=== PATIENT | female | born 1930 | race Caucasian/White ===

== ENCOUNTER → 2016-11-08 | Outpatient (CLI) | payer OTHER ==
[~2016-11-08] MED LIST: ACETAMINOPHEN PO; ASPIRIN PO; CARBIDOPA-LEVO1 EAC5 PO; DETROL LA PO; GLUCOSAMINE CHOND; MEVACOR PO; MOBIC PO; MULTIVITAMIN; NEXIUM PO; NORVASC PO; PATIENT'S PHARMACY; PLAVIX PO; PRINCIPEN500 M1 PO; PROCTOZONE-HC30 G2 PR; TOPROL XL PO; TOVIAZ8 MG PO; TYLOX 5/500 CAP1 CAP PO; VITAMIN D 4001 UDTAB PO; [UNRECOGNIZED DRUG - OTHER] PO
--- NOTE | ~2016-11-08 | MR17 ---
[facility] A Service of [facility] & [facility] RADIOLOGY TEXT RESULTS PATIENT: ANGIE MOSS LOCATION: [facility] : 30 UNIT #: [id number] AGE: [address]: Du Steen II, MD SEX: F ORDER DR: [id number] [facility] [address] [place], [place] [address] [id number] O MR#: [id number] Acc #: [id number] NAME: ANGIE MOSS : 1930 SEX: F STUDY DATE/TIME: 11/08/2016 20:17 UNIT: [facility] ROOM: STUDY DESCRIPTION: MR Brain WWo Contrast Attending Physician: uD Steen II., M.D. Ordering Physician: Du Steen II., M.D. Primary Care Physician: Oscar Multani M.D. MRI CENTER REPORT This report is preliminary unless electronic signature is present. EXAM MRI of the brain with and without contrast dated 11/08/2016. COMPARISON None. HISTORY Parkinson disease was found last year but patient had some symptoms even before that. FINDINGS Multisequence, multiplanar imaging of the brain was obtained with and without contrast. GFR measured greater than 60. 11 mL of MultiHance was administered intravenously. Multiple patchy hyperintense T2-signal lesions are noted in the subcortical white matter, periventricular white matter, bilateral basal ganglia and shonda. Postcontrast sequences do not demonstrate adequate contrast enhancement which limits evaluation. No obvious large enhancing mass could be discerned in this limited enhancement. Status post bilateral cataract surgery. Paranasal sinuses and mastoid air cells demonstrate small nodular mucosal thickening in the inferior right maxillary antrum, likely mucous retention cysts. S-shaped nasal septal deviation is noted. Thick slices through the sella with the pituitary gland and pineal region are unremarkable. Mild degenerative changes are noted at C4-5. IMPRESSION 1. No acute stroke, hydrocephalus, hemorrhage, or midline shift. Postcontrast sequences are limited in evaluation given the phase of contrast imaging with limited enhancement. There is still no obvious large enhancing mass identified. 2. Degenerative changes in the cervical spine, particularly at C4-5 level. STS. [facility] A Service of [facility] & [facility] RADIOLOGY TEXT RESULTS PATIENT: ANGIE MOSS [facility] UNIT #: [id number] AGE: [address]: Du Steen II, MD SEX: F ORDER DR: Dictated by... Peterson Bravo M.D. THIS IS AN ELECTRONICALLY VERIFIED REPORT Peterson Bravo M.D. at 11/11/2016 3:11 PM CPR/tmw TD: 11/09/2016 15:19 JOB #: [id number] MRI CENTER REPORT Page 1 of 1 COPY
[2016-11-08 20:21] LABS: POC - CREATININE 0.86 mg/dL (0.44-1.03); POC - GFR >60.0 mL/min (>60)
== END | disposition home or self-care (01) ==
LOC: CMRI 19:19
PROVIDERS: Psychiatry & Neurology Neurology
DX: R41.3 Other amnesia (principal); M50.321 Other cervical disc degeneration at C4-C5 level
CPT/HCPCS: 70553; 82565; A9577

== ENCOUNTER 2017-02-21 13:24 | Observation (INO) | payer OTHER ==
[~2017-02-21] VITALS: Ht 154.9 cm; Wt 55.6 kg
--- NOTE | ~2017-02-21 | EKG ---
PATIENT: ANGIE MOSS UNIT #: [id number] Ventricular Rate: 69 BPM Atrial Rate: 69 BPM P-R Interval: 150 ms QRS Duration: 88 ms Q-T Interval: 426 ms QTC Calculation(Bezet): 456 ms P [place]: 13 degrees Calculated R [place]: -26 degrees Calculated T [place]: -8 degrees Diagnosis Line: Normal sinus rhythm Diagnosis Line: Voltage criteria for left ventricular hypertrophy Diagnosis Line: Nonspecific T wave abnormality Diagnosis Line: Abnormal ECG Diagnosis Line: No previous ECGs available Diagnosis Line: Confirmed by MARISSA ZARAGOZA MD ([id number]) on 02/21/2017 Diagnosis Line: 6:34:48 PM INTERPRETING MD: MILA EMANUEL
--- NOTE | ~2017-02-21 | CT71 ---
[facility] A Service of [facility] RADIOLOGY TEXT RESULTS PATIENT: ANGIE MOSS LOCATION: [facility] 334- : 30 UNIT #: [id number] AGE: [address]: Esther Smallwood MD SEX: F ORDER DR: [id number] [facility] [address]. [place], [place] [address] [id number] I MR#: [id number] Acc #: [id number] NAME: ANGIE MOSS. : 1930 SEX: F STUDY DATE/TIME: 02/21/2017 15:13 UNIT: [address] ROOM: [facility] STUDY DESCRIPTION: CT Head Wo Contrast Attending Physician: Esther Smallwood M.D. Ordering Physician: Andi Turpin M.D. Primary Care Physician: Oscar Multani M.D. MEDICAL IMAGING REPORT This report is preliminary unless electronic signature is present EXAM Noncontrast CT head. DATE: 02/21/2017 HISTORY Fell at home on 02/19/2017, with dizziness, left leg weakness and posterior neck pain. Additional history of hypertension and Parkinson's disease. COMPARISON MRI brain without and with contrast 11/08/[address] exam was performed with one or more of the following radiation dose reduction techniques: automatic exposure control, adjustment of mA and/or kV according to patient size, and iterative reconstruction. FINDINGS Extensive hypodensities are demonstrated throughout the deep white matter of the brain consistent with the appearance of chronic microvascular disease. There is atrophy with compensatory prominence of the ventricles and extraaxial spaces, similar to the prior exam. Murray matter-white matter junction distinction appears preserved without CT evidence of acute or evolving infarct. No intracranial hemorrhage, mass lesion, mass effect or midline shift is seen. Major paranasal sinuses and mastoid air cells appear clear. No displaced calvarial fracture is identified. IMPRESSION 1. No acute intracranial findings. 2. Moderately advanced chronic microvascular disease changes and mild generalized parenchymal atrophy, similar to the 11/08/2016 exam. [facility] A Service [facility] RADIOLOGY TEXT RESULTS PATIENT: ANGIE MOSS LOCATION: [facility] 334-01 : 30 UNIT #: [id number] AGE: [address]: Esther Smallwood MD SEX: F ORDER DR: Dictated by... Radhika Rodriguez M.D. THIS IS AN ELECTRONICALLY VERIFIED REPORT Radhika Rodriguez M.D. at 02/22/2017 8:56 AM JOSSIE/wilfrid TD: 02/22/2017 00:02 JOB #: [id number] MEDICAL IMAGING REPORT Page 1 of 1 COPY
--- NOTE | ~2017-02-21 | CR94 ---
[facility] A Service of [facility] & [facility] RADIOLOGY TEXT RESULTS PATIENT: ANGIE MOSS LOCATION: [facility] 334- : 30 UNIT #: [id number] AGE: [address]: Esther Smallwood MD SEX: F ORDER DR: [id number] [facility] [address] [place], [place] [address] [id number] I MR#: [id number] Acc #: [id number] NAME: ANGIE MOSS. : 1930 SEX: F STUDY DATE/TIME: 02/21/2017 14:28 UNIT: [address] ROOM: [facility] STUDY DESCRIPTION: CR Elbow Min 3 Views Rt Attending Physician: Esther Smallwood M.D. Ordering Physician: Andi Turpin M.D. Primary Care Physician: Oscar Multani M.D. MEDICAL IMAGING REPORT This report is preliminary unless electronic signature is present EXAM Right elbow series 02/21/2017 HISTORY Fall. Last Tuesday. Pain. FINDINGS AP, lateral and oblique radiographs of the right elbow are presented. Study is degraded by extensive clothing artifact overlying relevant anatomy. No displaced fracture is seen. Joint remains normally located and aligned. Intravenous access in antecubital fossa. No joint effusion. No traumatic appearing soft tissue abnormality. Dictated by... Salinas Isidro M.D. THIS IS AN ELECTRONICALLY VERIFIED REPORT Salinas Isidro M.D. at 02/22/2017 6:25 PM DELMI/philly TD: 02/21/2017 23:42 JOB #: [id number] MEDICAL IMAGING REPORT Page 1 of 1 COPY
--- NOTE | ~2017-02-21 | CR72 ---
[facility] A Service of [facility] RADIOLOGY TEXT RESULTS PATIENT: ANGIE MOSS LOCATION: [facility] 334- : 30 UNIT #: [id number] AGE: [address]: Esther Smallwood MD SEX: F ORDER DR: [id number] [facility] [address] [place], [place] [address] [id number] I MR#: [id number] Acc #: [id number] NAME: ANGIE MOSS. : 1930 SEX: F STUDY DATE/TIME: 02/21/2017 14:19 UNIT: [address] ROOM: [facility] STUDY DESCRIPTION: CR Chest Single View Portable Attending Physician: Esther Smallwood M.D. Ordering Physician: Andi Turpin M.D. Primary Care Physician: Oscar Multani M.D. MEDICAL IMAGING REPORT This report is preliminary unless electronic signature is present EXAM Single view chest x-ray, 02/21/2017 HISTORY Fall. Fell taking out garbage. Short of air, weakness right shoulder pain, bruising posterior elbow pain, bruising bilateral knee pain bruise. TECHNIQUE AP radiograph of the chest presented. No prior chest radiographs for comparison. FINDINGS The configuration of the lateral sixth and seventh ribs on the right raises concern for possible acute nondisplaced fractures. It is possible these could be chronic in time course. I have no comparisons. Please correlate with mechanism of injury and location of patient's pain. Similarly, there is a subtle cortical/contour irregularity lateral left fourth rib. Again this could be chronic in time course or a nondisplaced acute fracture. Heart upper limits of normal in size. The descending thoracic aorta is tortuous. The lungs are well inflated without evidence of acute pulmonary disease. No pleural effusion or pneumothorax. No suspicious nodule. Calcified granulomata in the left lung. Degenerative changes in the spine. Calcified granulomata also seen at the right lung base. Dictated by... Salinas Isidro M.D. THIS IS AN ELECTRONICALLY VERIFIED REPORT Salinas Isidro M.D. at 02/22/2017 6:25 PM NICKK/mehreen [facility] A Service of [facility] RADIOLOGY TEXT RESULTS PATIENT: ANGIE MOSS LOCATION: [facility] 334-01 : 30 UNIT #: [id number] AGE: [address]: Esther Smallwood MD SEX: F ORDER DR: TD: 02/21/2017 22:30 JOB #: [id number] MEDICAL IMAGING REPORT Page 1 of 1 COPY
--- NOTE | ~2017-02-21 | CT52 ---
[facility] A Service of [facility] RADIOLOGY TEXT RESULTS PATIENT: ANGIE MOSS LOCATION: [facility] 334-01 : 30 UNIT #: [id number] AGE: [address]: Esther Smallwood MD SEX: F ORDER DR: [id number] [facility] [address] [place], [place] [address] [id number] I MR#: [id number] Acc #: [id number] NAME: ANGIE MOSS. : 1930 SEX: F STUDY DATE/TIME: 02/21/2017 15:25 UNIT: [address] ROOM: [facility] STUDY DESCRIPTION: CT Cervical Spine Wo Cont Attending Physician: Esther Smallwood M.D. Ordering Physician: Andi Turpin M.D. Primary Care Physician: Oscar Multani M.D. MEDICAL IMAGING REPORT This report is preliminary unless electronic signature is present EXAM CT cervical spine without contrast Date: 02/21/17 HISTORY An 86-year-old female who fell at home on 02/19/2017 with posterior neck pain. COMPARISON None. TECHNIQUE This CT exam was performed with one or more of the following radiation dose reduction techniques: automatic exposure control, adjustment of mA and/or kV according to patient size, and iterative reconstruction. FINDINGS No acute cervical spine fracture or subluxation is evident. Moderately advanced diminished disc height is present C4-5, C5-6 and C6-7. Posterior disc osteophyte formation is present at C4-5, C5-6 and C6-7. No high-grade canal stenosis is seen. Degenerative facet arthropathy is present, greatest on the left at C4-5, and on the right at C5-6 and C6-7. Paraspinal soft tissues are within normal limits. Dense right carotid bulb calcifications are incidentally noted. IMPRESSION 1. Moderately advanced diminished disc height at C4-5, C5-6 and C6-7. Mild posterior osteophyte formation is seen at these same levels. No high-grade canal stenosis is identified. [facility] A Service of [facility] RADIOLOGY TEXT RESULTS PATIENT: ANGIE MOSS LOCATION: [facility] 334-01 : 30 UNIT #: [id number] AGE: [address]: Esther Smallwood MD SEX: F ORDER DR: 2. No acute cervical spine findings. Dictated by... Radhika Rodriguez M.D. THIS IS AN ELECTRONICALLY VERIFIED REPORT Radhika Rodriguez M.D. at 02/22/2017 8:56 AM JOSSIE/mehreen TD: 02/22/2017 00:08 JOB #: [id number] MEDICAL IMAGING REPORT Page 1 of 1 COPY
--- NOTE | ~2017-02-21 | CR173 ---
[facility] A Service of [facility] RADIOLOGY TEXT RESULTS PATIENT: ANGIE MOSS LOCATION: [facility] 334- : 30 UNIT #: [id number] AGE: [address]: Esther Smallwood MD SEX: F ORDER DR: [id number] [facility] [address] [place], [place] [address] [id number] I MR#: [id number] Acc #: [id number] NAME: ANGIE MOSS. : 1930 SEX: F STUDY DATE/TIME: 02/21/2017 14:30 UNIT: [address] ROOM: [facility] STUDY DESCRIPTION: CR Knee 3 Views Rt Attending Physician: Esther Smallwood M.D. Ordering Physician: Andi Turpin M.D. Primary Care Physician: Oscar Multani M.D. MEDICAL IMAGING REPORT This report is preliminary unless electronic signature is present EXAM Right knee series 02/21/2017 HISTORY Trauma. Fell 2 days ago taking out garbage. Weakness in legs. Pain, bruising frontal knee bruise, pain. FINDINGS AP, lateral and sunrise views of the right knee show normal bony mineralization. Alignment normal. There is no fracture. Mild narrowing all three joint space compartments. There is a suggestion of lateral joint space compartment chondrocalcinosis. There is no joint effusion. No soft tissue defect, subcutaneous air or radiodense foreign body. Dictated by... Salinas Isidro M.D. THIS IS AN ELECTRONICALLY VERIFIED REPORT Salinas Isidro M.D. at 02/22/2017 6:25 PM DELMI/[place] TD: 02/21/2017 23:57 JOB #: [id number] MEDICAL IMAGING REPORT Page 1 of 1 COPY
--- NOTE | ~2017-02-21 | CR172 ---
[facility] A Service of [facility] & [facility] RADIOLOGY TEXT RESULTS PATIENT: ANGIE MOSS LOCATION: [facility] 334-01 : 30 UNIT #: [id number] AGE: [address]: Esther Smallwood MD SEX: F ORDER DR: [id number] [facility] [address] [place], [place] [address] [id number] I MR#: [id number] Acc #: [id number] NAME: ANGIE MOSS. : 1930 SEX: F STUDY DATE/TIME: 02/21/2017 14:32 UNIT: [address] ROOM: [facility] STUDY DESCRIPTION: CR Knee 3 Views Lt Attending Physician: Esther Smallwood M.D. Ordering Physician: Andi Turpin M.D. Primary Care Physician: Oscar Multani M.D. MEDICAL IMAGING REPORT This report is preliminary unless electronic signature is present EXAM Left knee series 02/21/2017 HISTORY Trauma. Fell taking out garbage 2 days ago, pain, bruising, bilateral frontal knee bruising and pain. FINDINGS AP, lateral and sunrise views of the left knee are presented. No traumatic fracture or malalignment. Mild narrowing all three joint space compartments. No joint effusion. No soft tissue defect, subcutaneous air or radiodense foreign body. Dictated by... Salinas Isidro M.D. THIS IS AN ELECTRONICALLY VERIFIED REPORT Salinas Isidro M.D. at 02/22/2017 6:25 PM DELMI/philly TD: 02/21/2017 23:19 JOB #: [id number] MEDICAL IMAGING REPORT Page 1 of 1 COPY
--- NOTE | ~2017-02-21 | CR230 ---
[facility] A Service of [facility] RADIOLOGY TEXT RESULTS PATIENT: ANGIE MOSS LOCATION: [facility] 334- : 30 UNIT #: [id number] AGE: [address]: Esther Smallwood MD SEX: F ORDER DR: [id number] [facility] [address] [place], [place] [address] [id number] I MR#: [id number] Acc #: [id number] NAME: ANGIE MOSS. : 1930 SEX: F STUDY DATE/TIME: 02/21/2017 14:20 UNIT: [address] ROOM: [facility] the [facility] STUDY DESCRIPTION: CR Shoulder Min 2 View Rt Attending Physician: Esther Smallwood M.D. Ordering Physician: Andi Turpin M.D. Primary Care Physician: Oscar Multani M.D. MEDICAL IMAGING REPORT This report is preliminary unless electronic signature is present EXAM Right shoulder series HISTORY Fell 2 days ago taking out garbage, right shoulder pain. FINDINGS AP, internal and external rotation views of the right shoulder presented with transscapular view. Right shoulder shows no traumatic fracture or malalignment. There appears to be mild superior subluxation of the humeral head relative to glenoid. There is marked narrowing of the space between humeral head and acromion. Degenerative changes in the acromion. Humeral head contour normal. Acromioclavicular joint shows mild degenerative change. Periarticular soft tissues unremarkable. The visualized ribs appear intact and the visualized pulmonary parenchyma is clear. Dictated by... Salinas Isidro M.D. THIS IS AN ELECTRONICALLY VERIFIED REPORT Salinas Isidro M.D. at 02/22/2017 6:25 PM DELMI/philly TD: 02/21/2017 23:02 JOB #: [id number] MEDICAL IMAGING REPORT Page 1 of 1 COPY
--- NOTE | ~2017-02-21 | DS ---
Unit #: [id number] #: [id number] Patient: ANGIE MOSS [id number] [address] [address] [id number] I MR#: [id number] NAME: ANGIE MOSS. ROOM: 334 Age: 86 Sex: F Admission Date: 02/21/2017 : 1930 Discharge Date: 02/23/2017 Attending Physician: Esther Smallwood M.D. Primary Care Physician: Oscar Multani M.D. DISCHARGE SUMMARY PRINCIPAL DISCHARGE DIAGNOSES 1. Acute rhabdomyolysis. 2. Acute kidney injury. 3. Multiple abrasions. 4. Hypertension. 5. Hyperlipidemia. 6. Overactive bladder. 7. Parkinson syndrome. 8. Hypercalcemia. 9. Escherichia coli urinary tract infection. PROCEDURES None. CONSULTANTS None. REASON FOR HOSPITALIZATION The patient is an 86-year-old white female with history of hypertension, overactive bladder, Parkinson, osteoarthritis, hyperlipidemia, GE reflux disease who fell in her yard taking out the garbage on the . For whatever reason, she presented herself eventually to the emergency room on the complaining of right hip and knee pain. During that admission, she was found to be hypertensive, have renal insufficiency that we suspected were new but we have no old records on the patient here at the hospital. Her CPK level was 1115. Urinalysis was grossly infected. She had multiple rib fractures on x-ray but nothing else and these appeared to be age indeterminate and the patient denied any pain in this area of these rib fractures. In any case, she was admitted and placed on IV Rocephin. Urine culture was sent. She was placed on IV fluids containing sodium bicarbonate. Her Mobic and Mevacor that she was on at home were discontinued because of the renal insufficiency and rhabdomyolysis. She improved quickly. She was seen by OT and PT. SCDs were used for DVT prophylaxis. Her calcium was slightly high on admission at 10.6 but quickly fell with hydration. She had a CT scan of the head without contrast that showed no acute abnormalities. There was moderately advanced chronic microvascular disease and mild degenerative atrophy similar to prior exam, November 08, 2016. CT scan of the C-spine showed relatively diminished diskitis at C4-5, C5-6, C6-7. Mild posterior osteophyte formation at the same levels. No high-grade stenosis. No acute findings. Chest x-ray on admission showed a questionable lateral sixth and seventh right rib fractures, questionable left fourth rib fracture, borderline cardiomegaly, calcified granuloma but no active disease. Two views of the right shoulder showed some mild superior Unit #: [id number] #: [id number] Patient: ANGIE MOSS subluxation of the humeral head relative to the glenoid with marked narrowing of the humeral head and acromial space, degenerative changes, but no fractures or dislocations. Three views of the left knee showed osteoarthritis but no fractures. Three views of the right elbow showed no fracture/dislocation. Three views of the right knee showed osteoarthritis but no fractures. Two views of the right hip showed no acute abnormalities. Urine culture grew E. coli sensitive to Bactrim, ampicillin, Rocephin, and nitrofurantoin. Her magnesium this morning was slightly low at 1.5. CPK level is down to 309. Potassium slightly low at 3.1. Creatinine and BUN are normal. CO2 is normal. Calcium is normal. GFR is up to 57.9. CBC this morning is within normal limits except for a hemoglobin of 9.5, felt to be dropped secondary to rehydration. The patient is being discharged home after her potassium and magnesium were replaced. She is on a healthy heart diet as tolerates. DISCHARGE MEDICATIONS She is currently off her Mobic and Mevacor. She is given a prescription for ampicillin 500 mg t.i.d. for an additional five days. Her Norvasc was increased from 5 to 10 mg daily because of hypertension here at the hospital. She can take Tylenol 650 q.6 p.r.n. for pain. She has Proctozone, apply b.i.d. to hemorrhoids as needed. She is to continue her metoprolol succinate 100 mg daily. Carbidopa/Levodopa at 25/100 one t.i.d. Aspirin 81 mg daily. Plavix 75 mg daily. Calcium plus D once daily. Toviaz 8 mg daily. FOLLOWUP 1. She is to follow up with Dr. Multani in less than seven days. 2. [facility] is to follow for home health. They recommend two to three weeks off from work for home health care to provide home safety evaluation and education. Dictated by... Cristofer Barr TD: 02/24/2017 09:53 JOB #: [id number] DISCHARGE SUMMARY Page 1 of 1 X Francisco Javier Nagy MD DISCHARGE SUMMARY
--- NOTE | ~2017-02-21 | HP ---
Unit #: [id number] #: [id number] Patient: ANGIE MOSS [id number] [address] [place], [place] [address] [id number] MR#: [id number] NAME: ANGIE MOSS. ROOM: 334 Age: 86 Sex: F Admission Date: 02/21/2017 : 1930 Attending Physician: Esther Smallwood M.D. Primary Care Physician: Oscar Multani M.D. HISTORY AND PHYSICAL HISTORY OF PRESENT ILLNESS The patient is an 86-year-old white female with a history of hypertension, overactive bladder syndrome, hyperlipidemia, osteoarthritis, gastroesophageal reflux disease, and Parkinson, who fell in her yard taking out the garbage on February 19, 2017. She then presented to the emergency room complaining of right hip and knee pain on the , at which time she was found to be hypertensive. She had renal insufficiency with a BUN of 59, a creatinine of 3.5, and a GFR of 16.8. CPK was 1115. Troponin was normal. Urinalysis was grossly infected. Chest x-ray showed fractures of the right sixth and seventh ribs, as well as the left fourth of unknown duration. Multiple other x-rays showed no active disease, and the patient was admitted for rhabdomyolysis, renal insufficiency, unknown if it is acute kidney injury or not, hypertension, and multiple abrasions. She was given a tetanus booster in the emergency room, started on normal saline, and started on Rocephin. Currently, the patient appears to be comfortable. PAST MEDICAL HISTORY 1. Hypertension. 2. Hyperlipidemia. 3. Overactive bladder. 4. Parkinson. PAST SURGICAL HISTORY 1. Appendectomy. 2. Bladder repair. ALLERGIES No known drug allergies. MEDICATIONS PRIOR TO ADMISSION 1. Plavix 75 mg daily. 2. Toprol-XL 100 mg daily. 3. Mevacor 40 mg daily. 4. Aspirin 81 mg daily. 5. Vitamin D 400 units daily. 6. Norvasc 5 mg daily. 7. Proctozone b.i.d. p.r.n. 8. Toviaz 8 mg daily. 9. Mobic 7.5 mg b.i.d. 10. Carbidopa and levodopa 25/100 at 1 t.i.d. SOCIAL HISTORY Recently about a year and a half ago. Nonsmoker, nondrinker, and Unit #: [id number] #: [id number] Patient: ANGIE MOSS no street drug use. FAMILY HISTORY Noncontributory. PHYSICAL EXAMINATION GENERAL: She is awake, alert, oriented x3, and in no acute distress. VITAL SIGNS: Afebrile, pulse 83, respirations 20, blood pressure 190/91, and O2 saturation on room 98%. HEENT: Unremarkable. NECK: Supple without JVD, bruits, adenopathy, or thyromegaly. CHEST: Clear to auscultation. HEART: Regular rate and rhythm without any murmurs, rubs, or gallop. ABDOMEN: Soft, nondistended, and nontender, with positive with bowel sounds and no hepatosplenomegaly. EXTREMITIES: No clubbing, cyanosis, or edema. She has small superficial abrasions on right elbow and right knee and a smaller one on the left knee. DIAGNOSTIC STUDIES LABORATORY: CBC is normal except for a hemoglobin of 11.8 with normal MCV and normal MCH. Troponin normal x2 sets. PT-INR is 1 and PTT 22. CMP is normal except for a BUN of 59, creatinine 2.5, GFR 16.8, calcium 10.6, and AST 73. CPK of 1116. Urinalysis shows 1+ leukocytes, 2+ protein, 1+ blood, 0-2 RBCs, 10-25 WBCs, and 4+ bacteria. CPK level is down to 622 this morning, BUN is 49, creatinine 1.4, and GFR 32. IMAGING: Chest x-ray with possible lateral sixth and seventh rib fractures on the right and possible left fourth rib fracture. Heart upper limits of normal. A few calcified granuloma. Two views of the right shoulder show no fracture, no dislocation, and mild superior subluxation of the humeral head relative to the glenoid. Three views of the left knee show no fracture or osteoarthritis. Three views of the right knee show osteoarthritis and no fracture. Two views of the right hip show no acute abnormalities. Three views of the right elbow show no fracture or dislocation. CT scan of the head without contrast shows moderately advanced chronic microvascular disease, atrophy, no active disease, and no changes. CT scan of the C-spine shows degenerative disc disease C4-5, C5-6, C6-7, osteophytes, no stenosis, and no fracture or dislocation. CARDIOLOGY: EKG normal sinus rhythm, voltage criteria for LVH, and nonspecific T abnormality. IMPRESSION 1. Rhabdomyolysis. 2. Multiple abrasions. 3. Renal insufficiency of unknown duration. 4. Hypercalcemia. 5. Hypertension. 6. Hyperlipidemia. 7. Parkinson disease. PLAN Discontinue Mevacor because of rhabdomyolysis. Discontinue Mobic because of renal insufficiency. Hydrate with normal saline with sodium bicarbonate for alkalization of the urine. OT and PT consult. Urine culture and empiric antibiotics. DVT prophylaxis with SCDs for now. Further evaluation pending the results of the above. Unit #: [id number] #: [id number] Patient: ANGIE MOSS Dictated by Cristofer Barr/flash TD: 02/22/2017 21:36 JOB #: [id number] HISTORY AND PHYSICAL Page 1 of 1 X Francisco Javier Nagy MD X HISTORY AND PHYSICAL
--- NOTE | ~2017-02-21 | CR151 ---
[facility] A Service of [facility] & [facility] RADIOLOGY TEXT RESULTS PATIENT: ANGIE MOSS LOCATION: [facility] 334- : 30 UNIT #: [id number] AGE: [address]: Esther Smallwood MD SEX: F ORDER DR: [id number] [facility] [address] [place], [place] [address] [id number] I MR#: [id number] Acc #: [id number] NAME: ANGIE MOSS. : 1930 SEX: F STUDY DATE/TIME: 02/21/2017 14:24 UNIT: [address] ROOM: [facility] STUDY DESCRIPTION: CR Hip Min 2 Views Rt Attending Physician: Esther Smallwood M.D. Ordering Physician: Andi Turpin M.D. Primary Care Physician: Oscar Multani M.D. MEDICAL IMAGING REPORT This report is preliminary unless electronic signature is present EXAM Right hip series 02/21/2017 HISTORY Trauma. Fall taking out garbage. Fell 2 days ago. Pain bilateral hips. FINDINGS AP radiograph of pelvis presented with frog-leg view right hip. No traumatic fracture or malalignment. Mild degenerative changes bilateral hips. Proximal bilateral femurs intact. Mild to moderate degenerative changes suggested lower lumbar spine. Calcified phleboliths in the pelvis. The visualized bowel gas pattern is normal. Visualized periarticular soft tissues are unremarkable. IMPRESSION 1. No acute abnormality. Dictated by... Salinas Isidro M.D. THIS IS AN ELECTRONICALLY VERIFIED REPORT Salinas Isidro M.D. at 02/22/2017 6:25 PM DELMI/[place] TD: 02/21/2017 23:40 JOB #: [id number] MEDICAL IMAGING REPORT Page 1 of 1 COPY
[~2017-02-21 13:24] MED LIST changes: -ACETAMINOPHEN PO; -CARBIDOPA-LEVO1 EAC5 PO; -MOBIC PO; -PATIENT'S PHARMACY; -PRINCIPEN500 M1 PO; -PROCTOZONE-HC30 G2 PR; -TOVIAZ8 MG PO
[2017-02-21 14:33] LABS: BASOPHIL# 0.1 X10e3 (0-0.3); BASOPHIL% 0.8 % (0-2.5); EOSINOPHIL# 0.1 X10e3 (0-0.7); EOSINOPHIL% 1.1 % (0.0-7.0); HEMATOCRIT 35.1 % (35.0-45.0); HEMOGLOBIN 11.8 gm/dL (12.0-16.0); LYMPHOCYTE# 1.6 X10e3 (1.0-3.5); LYMPHOCYTE% 18.1 % (17.0-45.0); MEAN CELL VOLUME 89.3 FL (83-96); MEAN CORPUSCULAR HGB CONC 33.6 g/dL (30-36); MONOCYTE# 0.7 X10e3 (0-1.0); MONOCYTE% 8.2 % (3.0-12.0); NEUTROPHIL# 6.6 X10e3 (1.5-7.1); NEUTROPHIL% 71.8 % (40-75); PLATELET COUNT 266 X10e3 (140-420); RED BLOOD COUNT 3.93 X10e (3.90-5.30); RED CELL DISTRIBUTION WIDTH 14.2 % (11.0-15.5); WHITE BLOOD COUNT 9.1 X10e3 (4.0-10.5)
[2017-02-21 14:36] LABS: DIFF IND NO
[2017-02-21 14:42] LABS: POC - CKMB 20.9 ng/mL (0.0-7.9); POC - TROPONIN <0.05 ng/mL (<=0.05)
[2017-02-21 14:47] LABS: PROTHROMBIN TIME (PATIENT) 11.1 SECONDS (10.0-11.7)
[2017-02-21 14:57] LABS: ALBUMIN SERUM 4.2 g/dL (3.5-5.0); BILIRUBIN, DIRECT 0.1 mg/dL (0.0-0.2); BILIRUBIN,INDIRECT 0.7 mg/dL (0.0-0.9); BILIRUBIN,TOTAL 0.8 mg/dL (0.2-2.0); BUN/CREATININE RATIO 23.6; CALCIUM SERUM 10.6 mg/dL (8.4-10.2); CREATININE SERUM 2.5 mg/dL (0.6-1.4); GLOM FILT RATE Estimated 16.8 mL/min (>60); POTASSIUM 3.8 mmol/L (3.5-5.1); PROTEIN TOTAL SERUM 7.3 g/dL (6.0-8.3)
[2017-02-21 16:15] LABS: POC - CKMB 20.3 ng/mL (0.0-7.9); POC - TROPONIN <0.05 ng/mL (<=0.05)
[2017-02-21 16:29] LABS: URINE SOURCE CLEAN CATCH
[2017-02-21 16:37] LABS: URINE APPEARANCE CLOUDY; URINE BILIRUBIN NEG (NEG); URINE BLOOD 1+ (NEG); URINE COLOR YELLOW; URINE GLUCOSE NEG (NEG); URINE KETONE TRACE (NEG); URINE LEUKOCYTE ESTERASE 1+ (NEG); URINE NITRATE NEG (NEG); URINE PROTEIN 2+ (NEG); URINE SPECIFIC GRAVITY 1.017 (1.003-1.035)
[2017-02-21 16:40] LABS: CULTURE INDICATED? YES; URBCS1 AUWI 0-2 /[HPF] (0-2); URINE BACTERIA AUWI 4+ (NEGATIVE); URINE SQUAMOUS EPITHELIAL CELL OCC /[HPF]
[2017-02-21 16:49] LABS: URINE AMORPHOUS SEDIMENT AMORP URATES
[2017-02-21] MEDS ORDERED: PATIENT'S PHARMACY (17:44)
[2017-02-21] MEDS ORDERED: PROCTOZONE-HC30 G2 PR (17:45)
[2017-02-21] MEDS ORDERED: MOBIC PO (17:45)
[2017-02-21] MEDS ORDERED: CARBIDOPA-LEVO1 EAC5 PO (17:45)
[2017-02-21] MEDS ORDERED: TOVIAZ8 MG PO (17:45)
[2017-02-22 04:44] LABS: BASOPHIL# 0.1 X10e3 (0-0.3); EOSINOPHIL# 0.3 X10e3 (0-0.7); EOSINOPHIL% 3.9 % (0.0-7.0); HEMATOCRIT 30.6 % (35.0-45.0); HEMOGLOBIN 10.4 gm/dL (12.0-16.0); LYMPHOCYTE# 1.5 X10e3 (1.0-3.5); MEAN CELL VOLUME 89.9 FL (83-96); MEAN CORPUSCULAR HEMOGLOBIN 30.7 PG (28-34); MEAN CORPUSCULAR HGB CONC 34.1 g/dL (30-36); MEAN PLATELET VOLUME 7.7 FL (6.5-11.5); MONOCYTE# 0.6 X10e3 (0-1.0); NEUTROPHIL# 5.2 X10e3 (1.5-7.1); NEUTROPHIL% 67.1 % (40-75); PLATELET COUNT 205 X10e3 (140-420); RED CELL DISTRIBUTION WIDTH 14.3 % (11.0-15.5); WHITE BLOOD COUNT 7.7 X10e3 (4.0-10.5)
[2017-02-22 04:46] LABS: DIFF IND NO
[2017-02-22 05:53] LABS: BUN/CREATININE RATIO 32.66; CALCIUM SERUM 9.5 mg/dL (8.4-10.2); CREATININE SERUM 1.5 mg/dL (0.6-1.4); GLOM FILT RATE Estimated 31.2 mL/min (>60); POTASSIUM 3.6 mmol/L (3.5-5.1)
[2017-02-23 05:31] LABS: HEMATOCRIT 28.2 % (35.0-45.0); HEMOGLOBIN 9.5 gm/dL (12.0-16.0); MEAN CELL VOLUME 88.1 FL (83-96); MEAN CORPUSCULAR HEMOGLOBIN 29.8 PG (28-34); MEAN CORPUSCULAR HGB CONC 33.9 g/dL (30-36); MEAN PLATELET VOLUME 7.9 FL (6.5-11.5); RED BLOOD COUNT 3.2 X10e (3.90-5.30); RED CELL DISTRIBUTION WIDTH 13.8 % (11.0-15.5); WHITE BLOOD COUNT 5.8 X10e3 (4.0-10.5)
[2017-02-23 05:52] LABS: BILIRUBIN,TOTAL 0.7 mg/dL (0.2-2.0); BUN/CREATININE RATIO 25.55; CALCIUM SERUM 8.7 mg/dL (8.4-10.2); CREATININE SERUM 0.9 mg/dL (0.6-1.4); GLOM FILT RATE Estimated 57.9 mL/min (>60); POTASSIUM 3.1 mmol/L (3.5-5.1); PROTEIN TOTAL SERUM 5.6 g/dL (6.0-8.3)
[2017-02-23 08:51] LABS: MAGNESIUM 1.5 mg/dL (1.6-3.0)
[2017-02-23 13:36] LABS: ALBUMIN SERUM 3.3 g/dL (3.5-5.0); BILIRUBIN,TOTAL 0.4 mg/dL (0.2-2.0); BUN/CREATININE RATIO 18.88; CALCIUM SERUM 9.1 mg/dL (8.4-10.2); CREATININE SERUM 0.9 mg/dL (0.6-1.4); GLOM FILT RATE Estimated 57.9 mL/min (>60); POTASSIUM 3.5 mmol/L (3.5-5.1)
[2017-02-23] MEDS ORDERED: ACETAMINOPHEN PO (13:57)
[2017-02-23] MEDS ORDERED: PRINCIPEN500 M1 PO (14:00)
== END 2017-02-24 14:32 | disposition home or self-care (01) ==
LOC: CED 13:24 → CEDOF 14:06 → CED 18:05 → C3A PCU 18:05 → CEDOF 18:05 → CED 18:28 → CEDOF 18:28 → C3A PCU 20:15
PROVIDERS: Emergency Medicine; Internal Medicine; Physician Assistant Medical
DX: M25.551 Pain in right hip (principal); M25.561 Pain in right knee; I10 Essential (primary) hypertension; E78.5 Hyperlipidemia, unspecified; N32.81 Overactive bladder; G20 Parkinson's disease; M62.82 Rhabdomyolysis; N28.9 Disorder of kidney and ureter, unspecified; E83.52 Hypercalcemia; Z90.49 Acquired absence of other specified parts of digestive tract; Z79.02 Long term (current) use of antithrombotics/antiplatelets; Z79.82 Long term (current) use of aspirin; Z79.899 Other long term (current) drug therapy
CPT/HCPCS: 36415; 51701; 70450; 71010; 72125; 73030; 73080; 73502; 73562; 80048; 80053; 80076; 81003; 82550; 82553; 83735; 84484; 85025; 85027; 85610; 85730; 87086; 87088; 87186; 93005; 96360; 96361; 96375; 96376; 97116; 97161; 97165; 97530; 99285; G0378; G8978-GP; G8979-GP; G8987-GO; G8988-GO; G8989-GO; J0696; J3475